=== PATIENT | female | born 1985 | race Two or more races ===

== ENCOUNTER 2021-06-02 11:52 | Emergency (ER) | payer OTHER ==
[2021-06-02 12:04] VITALS: BMI 23.6
[2021-06-02] MEDS ORDERED: MECLIZINE HCL 12.5 MG TABLET PO ONE (13:19)
[2021-06-02] MEDS ORDERED: SODIUM CHLORIDE 0.9% 500 ML INFUS.BAG IV ONE (13:26)
[2021-06-02 15:06] LABS: BASO % 0.4 % (0-2.0); EOS % 3.5 % (0-4.5); HEMATOCRIT 40.7 % (32.4-45.2); HEMOGLOBIN 13.8 GM/dL (10.7-15.3); LYMPH % 21.6 % (8-40); MCH 30.8 pg (25.7-33.7); MCHC 33.8 g/dl (32.0-36.0); MEAN CELL VOLUME 91.1 fl (80-96); MEAN PLT VOLUME 10.9 fl (7.5-11.1); NEUT % 66.5 % (42.8-82.8); PLATELET COUNT 154 10^3/uL (134-434); RBC 4.47 M/mm3 (3.60-5.2); RDW 12.9 % (11.6-15.6); WHITE BLOOD COUNT 8.1 K/mm3 (4.0-10.0)
[2021-06-02 15:13] LABS: CHLORIDE 107 mmol/L (98-107); SODIUM 139 mmol/L (136-145)
[2021-06-02 15:16] LABS: ALBUMIN 3.9 g/dl (3.4-5.0); ANION GAP 6 MMOL/L (8-16); CALCIUM 8.8 mg/dL (8.5-10.1); CO2 26 mmol/L (21-32); GLUCOSE,RANDOM 87 mg/dL (74-106)
[2021-06-02 15:20] LABS: CREATININE 0.4 mg/dL (0.55-1.3); SGOT/AST 18 U/L (15-37); SGPT/ALT 19 U/L (13-61)
[2021-06-02 15:21] LABS: BILIRUBIN,TOTAL 0.6 mg/dL (0.2-1); TOT PROT 7.6 g/dl (6.4-8.2)
[2021-06-02 15:23] LABS: ALK PHOS 63 U/L (45-117)
[2021-06-02 15:53] VITALS: BP 110/64; PULSE 68; TEMP 98.6
== END 2021-06-02 15:55 | disposition home or self-care (01) ==
LOC: JER 11:52
DX: R55 Syncope and collapse (principal)
CPT/HCPCS: 36415; 80053; 82550; 84443; 84484; 84703; 85025; 93005; 93010; 99284-25